=== PATIENT | male | born 1950 | race Caucasian/White ===

== ENCOUNTER 2018-06-15 05:36 | Day surgery (SDC) | payer MEDICARE, MEDICAID ==
[~2018-06-15] VITALS: Ht 182.9 cm; Wt 143.2 kg
--- NOTE | ~2018-06-15 | OP ---
PATIENT NAME: ABRAHAM BRIGGS MEDICAL RECORD: [id number] :52 LOCATION:DTIM ADMISSION DATE: SURGEON: LUCIO JOHNSON DO DATE OF OPERATION: 06/15/2018 PROCEDURE: Colonoscopy with polypectomy. INDICATIONS FOR PROCEDURE: Chronic constipation, right lower quadrant abdominal tenderness, personal history of polyps. SCOPE: Olympus video pediatric colonoscope. MEDICATIONS: Propofol 850 mg IV per anesthesia. WITHDRAWAL TIME: 25 minutes. ESTIMATED BLOOD LOSS: Minimal. COMPLICATIONS: None. FINDINGS: Informed consent was given. The patient was made comfortable with the above medication. After reaching an adequate level of sedation by slow IV push, the patient was placed on his left side. A digital rectal examination was performed and it was normal other than an enlarged prostate. The endoscope was advanced under direct visualization through the rectum to the cecum, confirmed by the presence of the appendiceal orifice and ileocecal valve. The endoscope was slowly withdrawn and the mucosa was carefully examined. The prep quality was inadequate on the right side of the colon, but was otherwise good. On this examination, there was mild diverticulosis of the sigmoid colon without evidence of diverticulitis. There was also grade I internal hemorrhoids without bleeding upon retroflexion. There were a total of 8 polyps visualized on today's examination. Five of these were located in the ascending colon. They were benign appearing and sessile and ranged in size from 3-1 cm in size. They were all removed using a hot snare. In the transverse colon, there were 3 separate polyps, which were benign-appearing and sessile. They ranged in size from 2-4 mm in diameter. They were all removed using hot forceps. The endoscope was withdrawn from the patient. The patient tolerated the procedure well and there were no complications. IMPRESSION: 1. Multiple polyps as described above, removed using a combination of hot snare and hot forceps. 2. Mild diverticulosis of the sigmoid colon. 3. Grade I internal hemorrhoids without bleeding. PLAN AND RECOMMENDATIONS: 1. Discharge home when recovery parameters are met. 2. Follow up biopsy specimen results. 3. High fiber diet. 4. Continue current medications. 5. Recall colonoscopy in 1 year based on the number and size of polyps today as well as the fact that the prep was not adequate on the right side of the colon. I recommend this procedure be scheduled for 10 o'clock or later, so that he may use a split prep regimen to ensure adequate preparation. OPERATIVE REPORT [id number] ABRAHAM BRIGGS TRANSINT:[id number] Voice Confirmation ID: [id number] DOCUMENT ID: [id number] LUCIO JOHNSON DO at 1739 CC: [id number] DICTATION DATE: 06/15/18902 CLINICAL LABORATORY SERVICE TEACHER: 06/15/18 1130 [facility] 06/15/18 [id number] [place] [address]
[2018-06-15 06:08] LABS: HEMATOCRIT 40.9 % (42.0-54.0); HEMOGLOBIN 14.1 g/dL (13.5-17.5); MCHC 34.5 g/dL (31.0-37.0); MCV 81.3 fL (80.0-100.0); MEAN PLATELET VOLUME 9.4 fL (7.4-10.4); RBC 5.03 10x6/uL (4.20-6.10); RDW 14.3 % (11.5-14.5); WBC 8.2 10x3/uL (4.8-10.8)
[2018-06-15 06:29] LABS: CALC OSMOLALITY 278 mosm/kg (275-300); CALCIUM 9.2 mg/dL (8.5-10.1); CARBON DIOXIDE 26.2 mmol/L (21.0-32.0); CHLORIDE - SERUM 105 mmol/L (98-107); GLUCOSE 100 mg/dL (74-106); POTASSIUM - SERUM 3.6 mmol/L (3.5-5.1); SODIUM 141 mmol/L (136-145); UREA NITROGEN 8 mg/dL (7-18); eGFR NON AFRICAN AMERICAN 79 mL/min (90-120)
[2018-06-15] MEDS ORDERED: ZANTAC300 MG PO (06:31)
[2018-06-15] MEDS ORDERED: PRAVACHOL40 MG PO (06:31)
[2018-06-15] MEDS ORDERED: NORCO 10-325 TA1 TAB (06:32)
[2018-06-15] MEDS ORDERED: FLOMAX0.4 MG PO (06:32)
[2018-06-15] MEDS ORDERED: FUROSEMIDE40 MG PO (06:32)
[2018-06-15] MEDS ORDERED: SYMBICORT 16010.2 GM INH (06:33)
[2018-06-15 06:51] VITALS: BP 165/89; Ht 182.9 cm; Wt 143.2 kg
== END 2018-06-15 09:50 | disposition home or self-care (01) ==
LOC: D.OPS 05:36
PROVIDERS: Anesthesiology
DX: D12.3 Benign neoplasm of transverse colon (principal); D12.2 Benign neoplasm of ascending colon; K63.5 Polyp of colon; Z86.010 Personal history of colon polyps; K57.30 Diverticulosis of large intestine without perforation or abscess without bleeding; K64.0 First degree hemorrhoids; Z01.812 Encounter for preprocedural laboratory examination

== ENCOUNTER 2018-06-22 06:17 | Day surgery (SDC) | payer MEDICARE ==
[~2018-06-22] VITALS: Ht 182.9 cm; Wt 140.9 kg
--- NOTE | ~2018-06-22 | OP ---
PATIENT NAME: ABRAHAM BRIGGS MEDICAL RECORD: [id number] :52 LOCATION:AI ADMISSION DATE: SURGEON: LUCIO JOHNSON DO DATE OF OPERATION: 06/22/2018 PROCEDURE: EGD with balloon dilation and biopsies. INDICATIONS FOR PROCEDURE: GERD, dysphagia. SCOPE: Olympus video gastroscope. MEDICATIONS: Propofol 340 mg IV per anesthesia. ESTIMATED BLOOD LOSS: Minimal. COMPLICATIONS: None. FINDINGS: Informed consent was given. The patient was made comfortable with the above medication. After reaching an adequate level of sedation by slow IV push, the patient was placed on his left side. The endoscope was advanced under direct visualization through the mouth to the second portion of the duodenum with ease. The upper, middle, and lower thirds of the esophagus appeared normal. At the GE junction, there was a mild Schatzki ring, which was dilated using a CRE balloon up to 20 mm maximum diameter. There was also some mild LA class A reflux-induced esophagitis present at the GE junction. A single cold forceps biopsy was taken from the GE junction. The endoscope was then advanced into the stomach and retroflexed to view the cardia, where a small sliding hiatal hernia was present. The fundus, body of the stomach, antrum, and prepyloric regions appeared normal. Random cold forceps biopsies were taken to submit for histopathology and to rule out the presence of H. pylori. The endoscope was advanced beyond the pylorus into the duodenum where the bulb, first portion, and second portion of the duodenum appeared normal. The endoscope was withdrawn from the patient. The patient tolerated the procedure well and there were no complications. IMPRESSION: 1. LA class A reflux-induced esophagitis. 2. Mild Schatzki's ring dilated to 20 mm. 3. Small sliding hiatal hernia. PLAN AND RECOMMENDATIONS: 1. Discharge home when recovery parameters are met. 2. Follow up biopsy specimen results. 3. Continue GERD diet and reflux precautions. 4. Continue current medications including ranitidine 300 mg daily. 5. If response is loss to use of ranitidine, can consider a PPI at 20 or 40 mg equivalent daily. 6. Repeat EGD as needed for dysphagia. TRANSINT:[id number] Voice Confirmation ID: [id number] DOCUMENT ID: [id number] OPERATIVE REPORT [id number] ABRAHAM BRIGGS LUCIO JOHNSON DO at 1403 CC: [id number] DICTATION DATE: 06/22/18819 SHEET METAL SHOP FOREMAN: 06/22/18 0940 [facility] 06/22/18 [address] [place] [address]
[~2018-06-22 06:17] MED LIST: FLOMAX0.4 MG PO; FUROSEMIDE40 MG PO; NORCO 10-325 TA1 TAB; PRAVACHOL40 MG PO; SYMBICORT 16010.2 GM INH; ZANTAC300 MG PO
[2018-06-22 06:46] LABS: BASOPHILS 0.4 % (0-2); EOSINOPHILS 3.9 % (0-7); HEMOGLOBIN 13.9 g/dL (13.5-17.5); IMMATURE GRANULOCYTES 0.3 % (0-5); LYMPHOCYTES 19.9 % (15-50); MCH 27.9 pg (26.0-34.0); MCHC 33.9 g/dL (31.0-37.0); MCV 82.3 fL (80.0-100.0); MEAN PLATELET VOLUME 9.6 fL (7.4-10.4); MONOCYTES 7.4 % (2-11); NEUTROPHILS 68.1 % (40-80); PLATELET COUNT 296 10x3/uL (130-400); RBC 4.98 10x6/uL (4.20-6.10); RDW 14.4 % (11.5-14.5)
[2018-06-22 07:04] LABS: APTT 31.6 SECONDS (22.8-39.4); INR 0.99 (0.85-1.17); PROTIME 12.7 SECONDS (11.6-15.0)
[2018-06-22] MEDS ORDERED: ALBUTEROL1.25 MG/3 INH (07:08)
[2018-06-22 07:13] VITALS: Ht 182.9 cm; Wt 140.9 kg
[2018-06-22 07:14] LABS: ALKALINE PHOSPHATASE 88 U/L (46-116); ALT (SGPT) 17 U/L (10-68); BILIRUBIN - TOTAL 0.75 mg/dL (0.2-1.3); CALC OSMOLALITY 280 mosm/kg (275-300); CALCIUM 8.5 mg/dL (8.5-10.1); CARBON DIOXIDE 24.1 mmol/L (21.0-32.0); CHLORIDE - SERUM 105 mmol/L (98-107); GLUCOSE 127 mg/dL (74-106); POTASSIUM - SERUM 3.7 mmol/L (3.5-5.1); PROTEIN - SERUM 6.7 g/dL (6.4-8.2); SODIUM 141 mmol/L (136-145); UREA NITROGEN 7 mg/dL (7-18); eGFR NON AFRICAN AMERICAN 79 mL/min (90-120)
== END 2018-06-22 09:08 | disposition home or self-care (01) ==
LOC: D.OPS 06:17
PROVIDERS: Anesthesiology
DX: K21.0 Gastro-esophageal reflux disease with esophagitis (principal); K44.9 Diaphragmatic hernia without obstruction or gangrene; K22.2 Esophageal obstruction; Z01.812 Encounter for preprocedural laboratory examination

== ENCOUNTER → 2021-01-22 08:11 | Outpatient (CLI) | payer MEDICARE ==
[2018-06-22 07:13] VITALS: BMI 42.1
[~2021-01-22 08:11] MED LIST changes: +ALBUTEROL1.25 MG/3 INH
--- NOTE | 2021-01-23 14:32 | ST ---
PATIENT:ABRAHAM BRIGGS MEDICAL RECORD: [id number] SEX: M LOCATION:[facility] ORDER #: ADMISSION DATE: 01/22/21 AGE OF PATIENT: 70 REFERRING PHYSICIAN: INTERPRETING PHYSICIAN: LEONID DAVIS MD DATE OF SERVICE: 01/22/2021 NUCLEAR STRESS TEST Gated is normal, normal wall motion, normal wall thickening, calculated EF 71%. SPECT imaging: SPECT imaging in the short axis view shows fixed defect from the inferior base down to the mid inferior wall, but with reversibility seen at the inferior apex. This confirmed in the horizontal axis with a fixed defect along the inferior base down the mid inferior wall, but significant reversibility along the inferior base. Vertical axis: Vertical axis shows good uptake along lateral wall and septum. FINAL IMPRESSION: 1. Normal gated, normal wall motion, EF 71%. 2. SPECT imaging with a mixed defect seen along the inferior base, reversibility seen along the inferior apex. FINAL RECOMMENDATION: This scan is consistent with underlying coronary artery disease. There is reversibility noted along the inferior apex. We will consider diagnostic angiography if clinically indicated. TRANSINT:[id number] Voice Confirmation ID: [id number] DOCUMENT ID: [id number] LEONID DAVIS MD at 1432 CC: [id number] DICTATION DATE: 01/22/21 1623 PLATINUMSMITH: 01/23/21 0503 [facility] CLI 01/22/21 [id number] [place] [address]
== END | disposition home or self-care (01) ==
LOC: D.HCCECHO 08:11
PROVIDERS: ATTEND Internal Medicine Interventional Cardiology
DX: R06.00 Dyspnea, unspecified (principal)

== ENCOUNTER 2021-01-30 06:20 | Day surgery (SDC) | payer MEDICARE ==
[~2021-01-30] VITALS: Ht 182.9 cm; Wt 153.2 kg
--- NOTE | ~2021-01-30 | HEMODYNAMI ---
PATIENT:ABRAHAM BRIGGS MEDICAL RECORD: [id number] : 52 LOCATION:D.CAT ADMISSION DATE: 01/30/21 Generatedon:19:21 Patient name: ABRAHAM BRIGGS Patient #: [id number] SSN: D OB: 1950 Date of study: 01/30/2021 Page: Of Hemodynamic Procedure Report Patient Data Patient Demographics Procedure consent was obtained First Name: ABRAHAM Gender: Male Last Name: CHESTER : 1950 Middle Initial: MARY Age: 70 year(s) Patient #: [id number] Race: Unknown Additional ID: [id number] Contact details [address]: [address] [place] [address] State: [place] City: [facility] Zip code: [address] Past Medical History Performed procedures and imaging results Date Procedure Procedure Results Comments Stress testing Positive->Intermediate with SPECT MPI risk Allergies: No known allergies Admission Admission Data Admission Date: 01/30/2021 Admission Time: 6:20 Arrival Date: 01/30/2021 Arrival Time: 0:00 Height (in.): 72 BSA: 2.66 (m2) Height (cm.): 182.88 BMI: 45.75 (kg/m2) Weight (lbs.): 337.31 Weight (kg.): 153 Lab Results Lab Result Date: 01/30/2021 Lab Result Time: 0:00 Biochemistry Name Units Result Min Max BUN mg/dl 11 --(-*--)-- 7 18 Creatinine mg/dl 1 --(--*-)-- 0.6 1.3 eGFR ml/min 79.34150 *-(----)-- 90 120 NONAFRICAN Procedure Procedure Types Cath Procedure Diagnostic Procedure C [facility] w/Coronaries Sedation Charges Moderate Sedation 10-24 minutes Procedure Description Procedure Date Procedure Date: 01/30/2021 Procedure Start Time: 9:05 Procedure End Time: 9:18 Procedure Staff Name Function William Cabrales MD Performing Physician Jessy Ornelas RT Monitor Emily Lovell RN Nurse Arnol Banuelos RT Scrub Procedure Data Cath Procedure Fluoroscopy Diagnostic fluoroscopy Total fluoroscopy Time: 2.9 time: 2.9 min min Diagnostic fluoroscopy Total fluoroscopy dose: 602 dose: 602 mGy mGy Contrast Material Contrast Material Type Amount (ml) Isovue 300 66 Entry Location Entry Primary Successful Side Size Upsize Upsize Entry Closure Hurtado ccessful Closure Location (Fr) 1 (Fr) 2 (Fr) Remarks Device Remarks Radial Right 6 Fr Mechanical artery Short Compression Estimated blood loss: 5 ml Diagnostic catheters Device Type Used For End Catheter Placement DIAGNOSTIC Blythe 110cm 5 Procedure Fr catheter ([id number]) DIAGNOSTIC Pigtail 5Fr Procedure catheter ([id number]) Procedure Complications No complications Procedure Medications Medication Administration Route Dosage Oxygen etCO2 Nasal cannula 2 l/min Lidocaine 2% added to field 20 Heparin Flush Bag added to field 2 bags (1000units/500ml NS) 0.9% NaCl I.V. 100 ml/hr Zofran I.V. 4 mg Radial Cocktail added to field 1 syringe (Verapamil 2mg/Nitro 400mcg/Heparin 1500units) Versed I.V. 1 mg Fentanyl I.V. 50 mcg Versed I.V. 1 mg Fentanyl I.V. 50 mcg Hemodynamics Rest BSA: 2.66 (m2) O2 Consumption: Estimated: 309.9 (ml/min) O2 Consumption indexed: Estimated:116.5 (ml/min/m) Heart Rate: 72 (bpm) Pressure Samples Time Site Value (mmHg) Purpose Heart Use Rate(bpm) 9:09 LV 117/-2,8 Snapshot 84 9:09 LV 110/1,9 Snapshot 85 9:10 AO 103/70(81) Pullback 80 9:10 LV 114/7,15 Pullback 80 Gradients Valve Time Site 1 Site 2 Mean SEP/DFP Peak To Heart Use (mmHg) (sec/min) Peak Rate (mmHg) (bpm) Aortic 9:10 LV AO 10 7 11 80 114/7,15 103/70(81) Aortic 9:15 LV AO 77 Snapshots Pre Cath Intra NCS Post Cath Vital Signs Time Heart Resp SPO2 etCO2 NIBP (mmHg) Rhythm Pain Sedation Rate (ipm) (%) (mmHg) Status Level (bpm) 8:41:32 81 14 95 32.3 141/80(112) NSR 0 (11) 10(A) , No pain 8:45:54 68 16 94 0 129/73(97) NSR 0 (11) 10(A) , No pain 8:50:14 72 14 94 0 123/73(100) NSR 0 (11) 10(A) , No pain 8:54:28 69 13 95 0.7 116/68(94) NSR 0 (11) 10(A) , No pain 8:58:46 71 13 97 0 115/64(88) NSR 0 (11) 10(A) , No pain 9:03:02 70 13 97 3.7 117/65(93) NSR 0 (11) 10(A) , No pain 9:07:20 67 11 97 1.5 112/63(88) NSR 0 (11) 9(A) , No pain 9:11:32 70 12 95 1.5 107/60(74) NSR 0 (11) 9(A) , No pain 9:15:51 74 12 94 15 103/58(84) NSR 0 (11) 9(A) , No pain Medications Time Medication Route Dose Verified Delivered Reason Notes Effectiveness by by 8:23:22 Oxygen etCO2 2 l/min William Buffie used for Nasal Keron Lovell RN procedure cannula 8:23:28 Lidocaine 2% added 20ml William William for local to vial Keron Cabrales MD anesthetic field 8:23:33 Heparin Flush added 2 bags William William used for Bag to Keron Cabrales MD procedure (1000units/500ml field NS) 8:39:44 Zofran I.V. 4 mg William Buffie for nausea Pt stat es Keron Lovell RN history of nausea with anesthesia 8:39:44 0.9% NaCl I.V. 100 William Buffie Per ml/hr Keron Lovell RN physician 8:41:54 Radial Cocktail added 1 William William for (Verapamil to syringe Keron Cabrales MD vasodilation 2mg/Nitro field 400mcg/Heparin 1500units) 9:02:57 Versed I.V. 1 mg William Buffie for sedation Keron Lovell RN 9:03:05 Fentanyl I.V. 50 mcg William Buffie for sedation Keron Lovell RN 9:08:07 Versed I.V. 1 mg William Buffie for sedation Keron Lovell RN 9:08:11 Fentanyl I.V. 50 mcg William Diaz for sedation Keron Lovell RN Procedure Log Time Note 7:58:35 Informed consent obtained and on chart 8:00:00 Procedure Status Elective Heart Cath (OP). 8:00:01 Time tracking: Regular hours (M-F 7:00 - 5:00) 8:00:04 Plan of Care:Hemodynamics will remain stable., Cardiac rhythm will remain stable., Comfort level will be maintained., Respiratory function will remain adequate., Patient/ family verbilizes understanding of procedure., Procedure tolerated without complication., Recovers from procedure without complications.. 8:00:13 H&P Date Dictated: 01/15/2021 Within 30 days and on chart., H&P Addendum completed by physician on day of procedure. (MUST COMPLETE FOR ALL OUTPATIENTS). 8:00:19 Patient allergic to No known allergies 8:00:46 Stress Test: yes; abnormal INFERIOR 8:11:10 Patient Weight : 337.31 lbs 8:11:12 Patient Height : 72 inches 8:11:15 Arrival Date: 01/30/2021 12:00:00 AM 8:23:15 Jessy Ornelas RT(R) sent for patient. Start room use. 8:23:22 Oxygen 2 l/min etCO2 Nasal cannula was administered by Emily Lovell RN; used for procedure; Verbal order read back and verified. 8:23:28 Lidocaine 2% 20ml vial added to field was administered by William Cabrales MD; for local anesthetic; Verbal order read back and verified. 8:23:33 Heparin Flush Bag (1000units/500ml NS) 2 bags added to field was administered by William Cabrales MD; used for procedure; Verbal order read back and verified. 8:32:50 Patient received from Pre/Post Procedure Room to CCL 1 Alert and oriented. Tansferred to table in Supine position. 8:39:44 Zofran 4 mg I.V. was administered by Emily Lovell RN; for nausea; Pt states history of nausea with anesthesia Verbal order read back and verified. 8:39:44 0.9% NaCl 100 ml/hr I.V. was administered by Emily Lovell RN; Per physician; Verbal order read back and verified. 8:40:17 Vital chart was started 8:41:34 Warm blankets applied, and mane hugger turned on for patient comfort. 8:41:35 Correct patient and procedure confirmed by team. 8:41:35 ECG and BP/O2 sat monitors applied to patient. 8:41:41 Baseline sample Acquired. 8:41:44 Rhythm: sinus rhythm 8:41:45 Full Disclosure recording started 8:41:46 Pre-op teaching completed and patient verbalized understanding. 8:41:46 Pre-procedure instructions explained to patient. 8:41:48 Family unavailable. 8:41:54 Radial Cocktail (Verapamil 2mg/Nitro 400mcg/Heparin 1500units) 1 syringe added to field was administered by William Cabrales MD; for vasodilation; Verbal order read back and verified. 8:42:02 Is patient on blood thinner?No 8:42:03 Patient diabetic? No. 8:42:08 Previous problem with sedation/anesthesia? Yes NAUSEA 8:42:10 Snore? Yes 8:42:11 Sleep apnea? Yes 8:42:17 Deviated septum? No 8:42:19 Opens mouth fully? Yes 8:42:21 Sticks out tongue? Yes 8:42:26 Airway obstruction? Yes COPD, EMPHYSEMA 8:42:32 Dentures? No ? 8:43:09 Pre procedure: right dorsailis pedis pulse 1+ Palpable, but thready & weak; easily obliterated 8:43:12 Modified Yonas's test Ulnar < 7 seconds 8:43:13 Patient pain scale 0/10 ?. 8:45:55 Lab Result : BUN 11 mg/dl 8:45:55 Lab Result : eGFR NONAFRICAN 79.44641 ml/min 8:45:55 Lab Result : Creatinine 1 mg/dl 8:45:58 Lab results completed and on chart. 8:46:02 Right Radial & Right Groin area was prepped with chlora-prep and draped in sterile fashion 8:46:03 Alarms reviewed by R. N. 8:46:03 Sharps counted by scrub and verified by R.N. 8:46:09 Use device set Radial Dx or PCI 8:46:11 ACIST Syringe (91292) opened to sterile field. 8:46:12 Bag Decanter (2002S) opened to sterile field. 8:46:13 ACIST Hand Control (69732) opened to sterile field. 8:46:14 ACIST Manifold (08151) opened to sterile field. 8:46:14 Tegaderm 4 x 4 (1626W) opened to sterile field. 8:46:15 Medline Cath Pack ([id number]) opened to sterile field. 8:46:15 MBrace Wrist Support ([id number]) opened to sterile field. 8:46:16 NEEDLE Cook 21G 4cm Radial (T60964) opened to sterile field. 8:46:17 EMERALD Guide Wire (502-641) opened to sterile field. 8:46:17 SHEATH 6FR RAIN (8233851) opened to sterile field. 9:01:05 --------ALL STOP TIME OUT------ 9:01:05 Final Timeout: patient, procedure, and site verified with staff and physician. All members of the team are in agreement. 9:01:06 Right Radial & Right Groin site verified by team. 9:01:15 Fire Safety Assessment: A--An alcohol-based skin anteseptic being used preoperatively., C--Open oxygen or nitrous oxide is being used., D--An ESU, laser, or fiber-optic light is being used. 9:01:18 Physical assessment completed. ASA score P 3 - A patient with severe systemic disease as per William Cabrales MD. 9:01:24 2) 60-89 Mildly reduced kidney function, and other findings (as for stage 1) point to kidney disease. 9:01:27 Maximum allowable contrast dose (3.7 X eGFR X 0.75)219 ml. 9:01:30 Sedation plan: IV Moderate Sedation Medication:Versed, Fentanyl 9:01:47 Zero performed for pressure channel P1 9:02:57 Versed 1 mg I.V. was administered by Emily Lovell RN; for sedation; Verbal order read back and verified. 9:03:05 Fentanyl 50 mcg I.V. was administered by Emily Lovell RN; for sedation; Verbal order read back and verified. 9:05:26 Procedure started. 9:05:50 Local anesthetic to right radial artery with Lidocaine 2% by William Cabrales MD.INITIAL ACCESS ONLY 9:07:36 A 6 Fr Short sheath was inserted into the Right Radial artery 9:08:07 Versed 1 mg I.V. was administered by Emily Lovell RN; for sedation; Verbal order read back and verified. 9:08:11 Fentanyl 50 mcg I.V. was administered by Emily Lovell RN; for sedation; Verbal order read back and verified. 9:08:14 A DIAGNOSTIC Blythe 110cm 5 Fr catheter (015800) was advanced over the wire and used for Procedure. 9:08:59 LV gram done using SANCHEZ 9:09:02 Injector settings: Ml/sec: 5, Volume: 15, 9:09:36 LV hemodynamics recorded. 9::58 EF : 60 % 9:11:34 LCA angiography performed. 9:12:18 RCA angiography performed. 9:12:40 ACCDominant side:Right 9:12:47 Catheter exchanged over wire. 9:13:00 A DIAGNOSTIC Pigtail 5Fr catheter ([id number]) was advanced over the wire and used for Procedure. 9:13:03 SECOND LV DONE USING PIGTAIL TO BETTER VISUALIZE VENTRICLE 9:14:21 LV gram done using SANCHEZ 9:14:23 Injector settings: Ml/sec: 10, Volume: 20, 9:15:00 EF : 60 % 9:15:33 Catheter removed. 9:15:40 ZEPHYR LARGE TR BAND (793824) opened to sterile field. 9:15:44 Procedure ended.(Physican Out) 9:15:56 Sheath removed intact; hemostasis achieved with Mechanical Compression to the Right Radial artery. 9:16:00 Contrast amount:Isovue 300 66ml. 9:16:05 Fluoroscopy time 02.90 minutes. 9:16:08 Fluoroscopy dose: 602 mGy 9:16:08 Flurop Dose total: 602 9:16:14 Dose Area Product 52819 mGy/cm. 9:16:17 Maximum allowable dose exceeded? No. 9:16:17 Sharps counted by scrub and verified by R.N. 9:16:25 Post-procedure physical assessment completed. ASA score P 3 - A patient with severe systemic disease as per William Cabrales MD. 9:16:32 [place] band inflated with 10cc of air. 9:16:56 Post procedure rhythm: sinus rhythm 9:16:58 Estimated blood loss: 5 ml 9:16:59 Post procedure instruction explained to patient.Patient verbalizes understanding. 9:16:59 Patient needs reinforcement of post procedure teaching. 9:17:17 Procedure type changed to Cath procedure, Diagnostic procedure, LHC, LHC w/Coronaries, Sedation Charges, Moderate Sedation 10-24 minutes 9:17:42 Procedure and supply charges have been captured, reviewed, submitted and are correct. 9:17:45 Procedure Complication : No complications 9:17:47 Vital chart was stopped 9:17:[address] [facility] Findings: mild to moderate CAD (<70%) 9:17:51 Operative report dictated upon procedure completion. 9:17:51 See physician's report for complete and final results. 9:17:53 Report given to Pre/Post Procedure Room. 9:17:56 Patient transfered to Pre/Post Procedure Room with Bed. 9:18:02 Procedure ended. 9:18:02 Full Disclosure recording stopped 9:18:10 End room use (Document Last) Device Usage Item Name Manufacture Quantity Catalog Hospital Part Current Minima l Lot# / Number Charge Number Stock Stock Serial# Code ACIST Acist 1 82301 [id number] 165160 [id number] 20 Syringe Medical (38722) Systems Inc Bag Microtek 1 2001S 672690 65976 141050 5 Decanter Medical Inc. () ACIST Hand Acist 1 49068 760851 740888 486008 5 Control Medical (45765) Systems Inc ACIST Acist 1 92746 443432 134901 592431 5 Manifold Medical (33072) Systems Inc Tegaderm 4 3M 1 1626W 145141 121018 074578 5 x 4 (1626W) Medline Medline 1 [id number] 262958 29589 668659 5 Cath Pack ([id number]) MBrace Advanced 1 140-0250-00 288574 55450 570471 5 Wrist Vascular Support Dynamics ([id number]) NEEDLE Cook Cook Medical 1 C52019 015862 540516 538013 5 21G 4cm Radial (C45349) EMERALD Cardinal 1 502-455 671633 706144 881152 5 Guide Wire Health (502-455) SHEATH 6FR Cardinal 1 [id number] 671517 2404098 150098 5 [facility] (4705463) DIAGNOSTIC Terumo 1 40-5013 443642 791280 170136 5 Blythe 110cm 5 Fr catheter (971671) DIAGNOSTIC Cardinal 1 [id number] 106751 458883 150530 5 Pigtail 5Fr Health catheter (155912U) ZEPHYR Cardinal 1 854902 558932 5493146 358364 5 LARGE TR Health BAND (845626) Signature Audit [place] Stage Time Signature Unsigned Intra-Procedure 01/30/2021 Jessy Ornelas 9:20:05 AM RT(R) Intra-Procedure 01/30/2021 Emily Lovell RN 9:20:59 AM Intra-Procedure 01/30/2021 William Cabrales MD 9:21:26 AM Signatures Performing Physician : Signature : William Cabrales MD Date : Time : Monitor : Jessy Ornelas Signature : RT Date : Time : Nurse : Emily Lovell RN Signature : Date : Time : [place] [place] [address]
[~2021-01-30 06:20] MED LIST changes: +HYDROCODON-ACE1 EA10 PO; -NORCO 10-325 TA1 TAB
[2021-01-30 07:41] VITALS: BP 170/89; Ht 182.9 cm; Wt 153.2 kg
[2021-01-30] MEDS ORDERED: ZYRTEC10 MG PO (08:01)
[2021-01-30] MEDS ORDERED: [UNRECOGNIZED DRUG - OTHER] INH (08:01)
[2021-01-30] MEDS ORDERED: VITAMIN D21250 MC1 PO (08:02)
[2021-01-30] MEDS ORDERED: SYMBICORT 16010.2 GM INH (08:03)
[2021-01-30 08:04] LABS: EOSINOPHILS 2.8 % (0-7); HEMATOCRIT 43.9 % (42.0-54.0); HEMOGLOBIN 14.7 g/dL (13.5-17.5); LYMPHOCYTES 14.3 % (15-50); MCH 27.3 pg (26.0-34.0); MCHC 33.6 g/dL (31.0-37.0); MCV 81.3 fL (80.0-100.0); MEAN PLATELET VOLUME 8.1 fL (7.4-10.4); MONOCYTES 6.3 % (2-11); NEUTROPHILS 75.6 % (40-80); WBC 10.6 10x3/uL (4.8-10.8)
[2021-01-30] MEDS ORDERED: PRAVASTATIN SOD10 MG PO (08:05)
[2021-01-30 08:17] LABS: ALT (SGPT) 21 U/L (10-68); CALC OSMOLALITY 278 mosm/kg (275-300); CALCIUM 9.2 mg/dL (8.5-10.1); CARBON DIOXIDE 27.1 mmol/L (21.0-32.0); CHLORIDE - SERUM 104 mmol/L (98-107); CHOL - HDL RATIO 3.7 ratio (2.3-4.9); CHOLESTEROL, TOTAL 176 mg/dL (0-200); GLUCOSE 118 mg/dL (74-106); HDL CHOLESTEROL 47 mg/dL (32-96); LDL CHOLESTEROL 116 mg/dL (0-100); LDL-HDL RATIO 2.5 ratio (1.5-3.5); POTASSIUM - SERUM 3.9 mmol/L (3.5-5.1); SODIUM 140 mmol/L (136-145); TRIGLYCERIDE 66 mg/dL (30-200); UREA NITROGEN 11 mg/dL (7-18); eGFR NON AFRICAN AMERICAN 79 mL/min (90-120)
[2021-01-30 08:51] LABS: PLATELET COUNT 373 10x3/uL (130-400)
--- NOTE | 2021-01-30 09:30 | NUR ---
PT ARRIVES TO CATH RECOVERY ROOM 4. MONITORING EQUIPMENT APPLIED, ASSESSMENT COMPLETE. R WRIST Z BAND SITE CDI, NO S/S OF BLEEDING. PERIPHERAL PULSES PRESENT. NO C/O NAUSEA OR PAIN AT THIS TIME. CALL LIGHT WITHIN PT REACH.
--- NOTE | 2021-01-30 09:45 | NUR ---
PT AOX4, FOLLOWS COMMANDS. R WRIST Z BAND SITE CDI WITH NO S/S OF BLEEDING. PERIPHERAL PULSES PRESENT. NO C/O PAIN OR NAUSEA. CALL LIGHT WITHIN PT REACH.
--- NOTE | 2021-01-30 10:00 | NUR ---
PT AOX4, FOLLOWS COMMANDS. R WRIST Z BAND SITE CDI WITH NO S/S OF HEMATOMA. NO COMPLAINTS OF NAUSEA OR PAIN. DENIES NEEDS. CALL LIGHT WITHIN PT REACH.
--- NOTE | 2021-01-30 10:15 | NUR ---
AZEB AT BEDSIDE, UPDATE PROVIDED. R WRIST Z BAND SITE CDI, NO S/S OF BLEEDING. NO COMPLAINTS AT THIS TIME. CALL LIGHT WITHIN PT REACH.
--- NOTE | 2021-01-30 10:31 | NUR ---
DAUGHTER AT BEDSIDE, UPDATE PROVIDED. R WRIST Z BAND CDI, 3CC TOTAL AIR RELEASED FROM BAND WITH NO S/S OF BLEEDING. PERIPHERAL PULSES PRESENT. NO COMPLAINTS AT THIS TIME. CALL LIGHT WITHIN PT REACH.
--- NOTE | 2021-01-30 10:42 | NUR ---
SANDWICH TRAY AND BEVERAGE PROVIDED, TOLERATING WITH NO NAUSEA. R WRIST Z BAND SITE CDI WITH NO S/S OF BLEEDING. 7CC TOTAL AIR RELEASED FROM Z BAND WITH NO BLEEDING.
--- NOTE | 2021-01-30 10:50 | NUR ---
TOTAL AIR RELEASED FROM Z BAND, NO S/S OF BLEEDING. NO COMPLAINTS AT THIS TIME. CALL LIGHT WITHIN PT REACH.
--- NOTE | 2021-01-30 11:13 | NUR ---
PIV D/C'D WITH TIP INTACT. DISCHARGE INSTRUCTIONS PROVIDED, PT VERBALIZES UNDERSTANDING.
--- NOTE | 2021-01-30 11:19 | NUR ---
PT DISCHARGED VIA WHEELCHAIR TO PRIVATE VEHICLE WITH ALL BELONGINGS AND PAPERWORK.
== END 2021-01-30 11:21 | disposition home or self-care (01) ==
LOC: D.CATH 06:20
PROVIDERS: ATTEND Internal Medicine Cardiovascular Disease
DX: I20.8 Other forms of angina pectoris (principal); R94.39 Abnormal result of other cardiovascular function study; R06.00 Dyspnea, unspecified; I50.9 Heart failure, unspecified